=== PATIENT | male | born 1950 | race Caucasian/White ===

== ENCOUNTER 2018-03-18 08:50 | Day surgery (SDC) | payer OTHER ==
[~2018-03-18] VITALS: Ht 215.9 cm; Wt 132.4 kg
[~2018-03-18 08:50] MED LIST: ASPI325EC PO
[2018-03-18] MEDS ORDERED: LISI5 PO (09:29)
[2018-03-18] MEDS ORDERED: Depo-Testo100 MG/1 M (09:30)
--- NOTE | 2018-03-18 10:05 | NUR ---
03/18/18 1005 Shania Paiz INJECTED INTO THE BX PORT PER DR. ARREDONDO ORDER.
== END 2018-03-18 10:40 | disposition home or self-care (01) ==
LOC: ORSCSDS 08:50
PROVIDERS: Internal Medicine Gastroenterology
PROC: 0DJD8ZZ Inspection of Lower Intestinal Tract, Via Natural or Artificial Opening Endoscopic (ICD-10-PCS; principal; 2018-03-18 10:00)
DX: Z12.11 Encounter for screening for malignant neoplasm of colon (principal); Z85.038 Personal history of other malignant neoplasm of large intestine; K57.30 Diverticulosis of large intestine without perforation or abscess without bleeding; G47.30 Sleep apnea, unspecified; E66.01 Morbid (severe) obesity due to excess calories; Z68.41 Body mass index [BMI] 40.0-44.9, adult; I10 Essential (primary) hypertension; Z79.82 Long term (current) use of aspirin; Z79.899 Other long term (current) drug therapy
CPT/HCPCS: J2250; J7120

== ENCOUNTER 2020-05-24 08:00 | Day surgery (SDC) | payer OTHER ==
[~2020-05-24] VITALS: Ht 185.4 cm; Wt 144.3 kg
[~2020-05-24 08:00] MED LIST changes: +Depo-Testo100 MG/1 M; +LISI5 PO
[2020-05-24] MEDS ORDERED: NAPR220 (08:52)
[2020-05-24] MEDS ORDERED: Aspir 8181 MG (09:14)
[2020-05-24] MEDS ORDERED: Flomax0.4 MG (09:15)
[2020-07-05] MEDS ORDERED: Lisinopril-Hct1 EAC4 PO (07:51)
== END 2020-05-24 10:57 | disposition home or self-care (01) ==
LOC: ORSCSDS 08:00
PROVIDERS: Orthopaedic Surgery
PROC: 01N50ZZ Release Median Nerve, Open Approach (ICD-10-PCS; principal; 2020-05-24 10:45)
DX: G56.02 Carpal tunnel syndrome, left upper limb (principal); I10 Essential (primary) hypertension; G47.33 Obstructive sleep apnea (adult) (pediatric); E66.01 Morbid (severe) obesity due to excess calories; Z68.41 Body mass index [BMI] 40.0-44.9, adult; Z79.899 Other long term (current) drug therapy
CPT/HCPCS: J0690; J1885; J2250; J3010; J7120

== ENCOUNTER 2020-07-12 08:55 | Day surgery (SDC) | payer OTHER ==
[~2020-07-12] VITALS: Ht 185.4 cm; Wt 144.3 kg
[~2020-07-12 08:55] MED LIST changes: +Aspir 8181 MG; +Flomax0.4 MG; +Lisinopril-Hct1 EAC4 PO; +NAPR220
== END 2020-07-12 12:00 | disposition home or self-care (01) ==
LOC: ORSCSDS 08:55
PROVIDERS: Orthopaedic Surgery
PROC: 01N50ZZ Release Median Nerve, Open Approach (ICD-10-PCS; principal; 2020-07-12 10:15)
DX: G56.01 Carpal tunnel syndrome, right upper limb (principal); I10 Essential (primary) hypertension; G47.33 Obstructive sleep apnea (adult) (pediatric); Z79.82 Long term (current) use of aspirin; Z79.899 Other long term (current) drug therapy
CPT/HCPCS: J0690; J1885; J2250; J2704; J3010; J7120

== ENCOUNTER 2021-12-28 08:40 | Day surgery (SDC) | payer OTHER ==
[~2021-12-28] VITALS: Ht 182.9 cm; Wt 133.5 kg
[~2021-12-28 08:40] MED LIST changes: +Adipex-P37.5 MG PO; -Aspir 8181 MG; +Aspir 8181 MG PO; +C COMPLEX1000 M1 PO; +DEPO-TESTO200 MG/1 M IM; +DOXYLAMINE SUCCINATE PO; -Depo-Testo100 MG/1 M; +GABA300 PO; +MAGNESIUM OXID500 MG PO; +Phendimetrazine35 MG PO; +TAMS.4ER PO; +VITAMIN B125000 MC1 PO; +VITAMIN D310 MC4 PO; +ZINC15 PO
--- NOTE | 2021-12-28 10:04 | NUR ---
Ambulatory in Day Surgery with cane. Pre-Op teaching done. Pt verbalizes understanding. Patient confirms NPO status and agrees with scheduled surgery. Patient reports completing Chlorhexadine shower X2 prior to admission to hospital. Lungs clear T/O to Auscultation.
--- NOTE | 2021-12-28 17:25 | NUR ---
Pt. is working with PT soon after Hip replacement surgery. Spouse and Pts. sister are present and welcome my visit. Rapport is established. Pt. is pleasant and verbalizes expectations to be discharged tomorrow. Normalize the Pt. experience and pray with the Pt. and family. Family verbalized gratitude for the spiritual care visit.
--- NOTE | 2021-12-28 19:03 | NUR ---
SHIFT SUMMARY PT HAS DONE WELL POST OP. WORKED w/ THERAPY. EATING & DRINKING WELL. UP TO CHAIR FOR DINNER. PAIN WELL CONTROLLED.
[2021-12-29 04:43] LABS: BASOPHILS ABSOLUTE AUTO 0.03 K/mm3 (0.00-0.23); BASOPHILS PERCENT AUTO 0 % (0-2); EOSINOPHILS PERCENT AUTO 0 % (0-6); Hematocrit 51.4 % (37.0-53.0); Hemoglobin 17.5 g/dL (13.5-17.5); IMMATURE GRAN ABSOLUTE AUTO 0.09 K/mm3 (0.00-0.10); IMMATURE GRAN PERCENT AUTO 1 % (0-1); LYMPHOCYTES ABSOLUTE AUTO 1.05 K/mm3 (0.84-5.20); LYMPHOCYTES PERCENT AUTO 8 % (21-46); MONOCYTES PERCENT AUTO 9 % (4-13); Mean Corpuscular Volume 103 fL (80-100); Mean Platelet Volume 10.9 fL (9.1-12.4); NEUTROPHILS ABSOLUTE AUTO 11.57 K/mm3 (1.96-9.15); NEUTROPHILS PERCENT AUTO 82 % (41-73); Platelet Count 177 K/mm3 (150-400); RDW Coefficient Variation 13.8 % (11.7-14.2); RDW Standard Deviation 52.3 fL (35.1-46.3); White Blood Cell Count 14.04 K/mm3 (4.00-11.30)
--- NOTE | 2021-12-29 04:55 | NUR ---
COMPUTED TOMOGRAPHY TECHNOLOGIST SUMMARY POD 0 FOR R HIP REPAIR. DRESSINGS ON R HIP C/D/I. PAIN HAS BEEN MANAGED WITH SCHEDULED TORADOL/TYLENOL. PT HAS SLEPT IN HIS RECLINER THROUGH THE NIGHT AND HAS DECLINED TO GET UP TO AMBULATE TONIGHT, BUT DID GET UP TO THE CHAIR FROM THE BED WITH PHYSICAL THERAPY EARLIER IN THE DAY PER DAY SHIFT RN REPORT. CONTINUES ABX PER EMAR. VSS, WILL CONTINUE TO MONITOR.
[2021-12-29 05:04] LABS: Calcium, Blood 8.4 mg/dL (8.5-10.1); Creatinine, Blood 1.07 mg/dL (0.60-1.20); Magnesium, Blood 1.8 mg/dL (1.6-2.4); Potassium, Blood 4.8 mmol/L (3.5-5.5)
--- NOTE | 2021-12-29 10:35 | NUR ---
Pt. was getting final PT before discharge. Assisted FACILITY MANAGER with bringing Pt. and personal items to the car, where spouse was picking him up. Pt. went out of his way to verbalize the amazing nursing care he has received. Pt. verbalized care for the spiritual care visit.
--- NOTE | 2021-12-29 10:58 | NUR ---
PT DISCHARGED HOME FROM UNIT AT APROX 1030. PT AND GIVEN WRITTEN AND VERBAL DC INSTRUCTIONS AND VERBALIZED UNDERSTANDING OF THESE INSTRUCTIONS. IV REMOVED BY [place] DOUGLAS. EXTRA AQUACEL DRESSINGS X'S 2 GIVEN TO PT ALONG WITH [employer] SPECIFIC WOUND CARE INSTRUCTION SHEET. PT STATES HE ALREADY PICKED UP PAIN MEDICATION AND ABX PRE-OP. WC TO CAR.
== END 2021-12-29 10:05 | disposition home or self-care (01) ==
LOC: ORSCMMR 08:40 → ORD 10:45 → ORSCMMR 10:45 → SURS 14:36 → ORSCMMR 12-29 10:05
PROVIDERS: Orthopaedic Surgery
PROC: 0SR90JA Replacement of Right Hip Joint with Synthetic Substitute, Uncemented, Open Approach (ICD-10-PCS; principal; 2021-12-28 10:45)
DX: M16.11 Unilateral primary osteoarthritis, right hip (principal); I10 Essential (primary) hypertension; G47.33 Obstructive sleep apnea (adult) (pediatric); E66.01 Morbid (severe) obesity due to excess calories; Z68.41 Body mass index [BMI] 40.0-44.9, adult; Z79.899 Other long term (current) drug therapy; Z79.82 Long term (current) use of aspirin; G62.9 Polyneuropathy, unspecified
CPT/HCPCS: 36415; 72170; 80048; 83735; 85025; 94660; 94762; 97110; 97116; 97162; 97165; 97530; 97535; A9270; C1713; C1776; J0171; J0690; J0735; J1100; J1885; J2250; J2405; J2704; J2795; J3010; J3370; J7120

== ENCOUNTER 2022-12-19 07:12 | Day surgery (SDC) | payer OTHER ==
[2022-12-19] VITALS (16 sets, daily range): BP systolic 101–147; BP diastolic 65–94
[~2022-12-19] VITALS: Ht 182.9 cm; Wt 125.7 kg
[~2022-12-19 07:12] MED LIST changes: +ALEVE220 MG PO; +Adipex-P37.5 M1 PO; +DUTA.5 PO; +MECL25 PO; +MULTIPLE VITAM1 EACH PO; +POTASSIUM CHLO20 ME2 PO; +SUPER B COMPLEX PO; +TORSE20 PO; +TRAM50 PO
--- NOTE | 2022-12-19 09:18 | NUR ---
History, Chart, Medications and Allergies reviewed before start of procedure. Patient confirms NPO status and agrees with scheduled surgery. Patient reports completing Chlorhexadine shower X2 prior to admission to hospital. Surgical site prepped with 2% Chlorhexidine cloth wipe. Pre-Op teaching done. Pt verbalizes understanding.
--- NOTE | 2022-12-19 17:39 | NUR ---
SHIFT SUMMARY PT HAS DONE WELL POST OP. PAIN WELL CONTROLLED. WORKED w/ THERAPY. EATING & DRINKING. NO VOID YET BUT WAS I/O CATH'd IN PACU. PT AGREES TO ATTEMPT TO VOID SOON.
[2022-12-20 00:54] VITALS: BP 115/74
[2022-12-20 04:36] LABS: BASOPHILS ABSOLUTE AUTO 0.02 K/mm3 (0.00-0.23); BASOPHILS PERCENT AUTO 0 % (0-2); EOSINOPHILS ABSOLUTE AUTO 0.02 K/mm3 (0.00-0.68); EOSINOPHILS PERCENT AUTO 0 % (0-6); Hematocrit 46.5 % (37.0-53.0); Hemoglobin 15.8 g/dL (13.5-17.5); IMMATURE GRAN ABSOLUTE AUTO 0.07 K/mm3 (0.00-0.10); IMMATURE GRAN PERCENT AUTO 1 % (0-1); LYMPHOCYTES ABSOLUTE AUTO 1.26 K/mm3 (0.84-5.20); LYMPHOCYTES PERCENT AUTO 8 % (21-46); MONOCYTES ABSOLUTE AUTO 1.03 K/mm3 (0.16-1.47); MONOCYTES PERCENT AUTO 7 % (4-13); Mean Corpuscular HGB 33.9 pg (26.0-34.0); Mean Corpuscular Volume 100 fL (80-100); Mean Platelet Volume 10.4 fL (9.1-12.4); NEUTROPHILS ABSOLUTE AUTO 12.66 K/mm3 (1.96-9.15); NEUTROPHILS PERCENT AUTO 84 % (41-73); Platelet Count 214 K/mm3 (150-400); RDW Coefficient Variation 13.6 % (11.7-14.2); RDW Standard Deviation 50.2 fL (35.1-46.3); Red Blood Cell Count 4.66 M/mm3 (4.30-5.90); White Blood Cell Count 15.06 K/mm3 (4.00-11.30)
--- NOTE | 2022-12-20 04:36 | NUR ---
SHIFT SUMMARY NO ACUTE CHANGES TO REPORT OVERNIGHT, POD 0 RIGHT TOTAL KNEE. PT HAS RESTED MOST OF THE NIGHT. HE HAS BEEN UP AND AMBULATING AND IS VOIDING. DRESSING C/D/I TO RIGHT KNEE. POST OP VITALS ARE STABLE. PT DENIES N/T IN EXT. PLAN IS FOR DC TODAY.
[2022-12-20 05:10] LABS: Bun/Creatinine Ratio 24.6 (12.0-20.0); Calcium, Blood 8.3 mg/dL (8.5-10.1); Creatinine, Blood 1.18 mg/dL (0.60-1.20); Potassium, Blood 4.4 mmol/L (3.5-5.5)
[2022-12-20 05:24] VITALS: BP 129/71
[2022-12-20 07:20] VITALS: BP 121/66
[2022-12-20] MEDS ORDERED: Percocet 5-3251 EACH PO (10:27)
[2022-12-20] MEDS ORDERED: ELIQUIS2.5 MG PO (10:30)
--- NOTE | 2022-12-20 11:24 | NUR ---
"Spiritual Care Visit | Pre Discharge Pt. is awake in his recliner and dressed for discharge when he welcomed my visit. Facilitated discussion about his hospital visit. Pt. verbalized fantastic about the care he recieved here at [facility]. Listen with encouragement and empathy. Pts. spouse arrives, and life review took place until the Pts. nurse came to discharge him. Pt. and spouse verbalized gratitude for the spiritual care visit."
--- NOTE | 2022-12-20 11:33 | NUR ---
DISCHARGE PT HAS CLEARED THERAPY. PAIN WELL CONTROLLED. EATING, DRINKING, & VOIDING WELL. DRSGUY & POLAR PACK SENT w/ PT. HAS ALREADY OBTAINED & FILLED RX. ESCORTED OUT VIA W/C.
--- NOTE | 2022-12-21 11:01 | NUR ---
12/21/22 1101 Karma Hobson VERIFICATIONS: EDIT CHART.
== END 2022-12-20 11:33 | disposition home or self-care (01) ==
LOC: ORSCMMR 07:12 → ORD 08:15 → ORSCMMR 08:15 → ORD 09:15 → ORSCMMR 09:15 → ORD 10:00 → SURS 13:19 → ORSCMMR 12-20 11:33
PROVIDERS: Orthopaedic Surgery
PROC: 0SRC0JA Replacement of Right Knee Joint with Synthetic Substitute, Uncemented, Open Approach (ICD-10-PCS; principal; 2022-12-19 09:15)
DX: M17.11 Unilateral primary osteoarthritis, right knee (principal); Z96.652 Presence of left artificial knee joint; Z96.643 Presence of artificial hip joint, bilateral; Z96.612 Presence of left artificial shoulder joint; Z96.611 Presence of right artificial shoulder joint; I10 Essential (primary) hypertension; G47.33 Obstructive sleep apnea (adult) (pediatric); Z85.038 Personal history of other malignant neoplasm of large intestine; E66.9 Obesity, unspecified; Z68.37 Body mass index [BMI] 37.0-37.9, adult; Z79.899 Other long term (current) drug therapy; Z79.82 Long term (current) use of aspirin
CPT/HCPCS: 36415; 73560-RT; 80048; 85025; 97110; 97116; 97162; A9270; C1713; C1776; J0171; J0690; J0735; J1100; J1885; J2371; J2405; J2704; J2795; J3010; J7120

== ENCOUNTER 2023-04-11 16:01 | Emergency (ER) | payer OTHER ==
[~2023-04-11] VITALS: Ht 182.9 cm; Wt 122.5 kg
[~2023-04-11 16:01] MED LIST changes: +ELIQUIS2.5 MG PO; +Percocet 5-3251 EACH PO
[2023-04-11] MEDS ORDERED: TADALAFIL20 M1 PO (17:54)
[2023-04-11] MEDS ORDERED: POTCHL20ER PO (17:55)
--- NOTE | 2023-04-11 18:06 | NUR ---
Spiritual Care Support Pt. is awake waiting in the ED to get a room. Facilitate a conversation regarding the Pts. recent health history. Pt. displays evidence of emotion during the wait. Considered matters of [place] and belief. Pt. displayed evidence of being comforted and maintained a good sense of humor. Assisted with communication with spouse who was in the waiting area. When Pt. was brought in room, this lawn care technician retrieved the spouse who joined Pt. at bedside. Both Pt. and spouse verbalized gratitude for the spiritual care visit.
[2023-04-11 18:17] LABS: BASOPHILS ABSOLUTE AUTO 0.07 K/mm3 (0.00-0.23); BASOPHILS PERCENT AUTO 1 % (0-2); EOSINOPHILS ABSOLUTE AUTO 0.08 K/mm3 (0.00-0.68); EOSINOPHILS PERCENT AUTO 1 % (0-6); Hematocrit 50.2 % (37.0-53.0); Hemoglobin 16.8 g/dL (13.5-17.5); IMMATURE GRAN ABSOLUTE AUTO 0.08 K/mm3 (0.00-0.10); IMMATURE GRAN PERCENT AUTO 1 % (0-1); LYMPHOCYTES ABSOLUTE AUTO 1.64 K/mm3 (0.84-5.20); LYMPHOCYTES PERCENT AUTO 14 % (21-46); MONOCYTES ABSOLUTE AUTO 1.06 K/mm3 (0.16-1.47); MONOCYTES PERCENT AUTO 9 % (4-13); Mean Corpuscular HGB 33.3 pg (26.0-34.0); Mean Corpuscular HGB Conc 33.5 g/dL (31.5-36.5); Mean Corpuscular Volume 99 fL (80-100); Mean Platelet Volume 11.4 fL (9.1-12.4); NEUTROPHILS ABSOLUTE AUTO 8.84 K/mm3 (1.96-9.15); NEUTROPHILS PERCENT AUTO 75 % (41-73); Platelet Count 190 K/mm3 (150-400); RDW Coefficient Variation 14.2 % (11.7-14.2); RDW Standard Deviation 51.3 fL (35.1-46.3); Red Blood Cell Count 5.05 M/mm3 (4.30-5.90); White Blood Cell Count 11.77 K/mm3 (4.00-11.30)
[2023-04-11 18:29] LABS: Albumin, Blood 3.5 g/dL (3.4-5.0); Albumin/Globulin Ratio 1.1 (0.8-1.8); Bilirubin, Total 0.5 mg/dL (0.1-1.0); Bun/Creatinine Ratio 16.1 (12.0-20.0); Creatinine, Blood 1.37 mg/dL (0.60-1.20); Globulin, Blood 3.3 g/dL (2.2-4.0); Potassium, Blood 4.4 mmol/L (3.5-5.5); Total Protein, Blood 6.8 g/dL (6.4-8.2)
[2023-04-11 20:00] VITALS: BP 123/80
== END 2023-04-11 20:44 | disposition home or self-care (01) ==
LOC: ER 16:01
PROVIDERS: Physician Assistant
DX: I95.2 Hypotension due to drugs (principal); T50.905A Adverse effect of unspecified drugs, medicaments and biological substances, initial encounter; I10 Essential (primary) hypertension; Z85.038 Personal history of other malignant neoplasm of large intestine; Z79.899 Other long term (current) drug therapy; Z79.01 Long term (current) use of anticoagulants
CPT/HCPCS: 80053; 85025; 93005; 93010; 99284-25

== ENCOUNTER 2024-08-16 10:49 | Emergency (ER) | payer OTHER ==
[~2024-08-16] VITALS: Ht 182.9 cm; Wt 142.0 kg
[~2024-08-16 10:49] MED LIST changes: +POTCHL20ER PO; +TADALAFIL20 M1 PO
[2024-08-16] MEDS ORDERED: METO50ER PO (11:03)
[2024-08-16] MEDS ORDERED: BUMETANIDE2 M6 PO (11:04)
[2024-08-16] MEDS ORDERED: OZEMPIC0.25 MG/02 SC (11:05)
[2024-08-16] MEDS ORDERED: MAGNESIUM GLU27.5 M1 PO (11:06)
[2024-08-16] MEDS ORDERED: POTASSIUM99 M3 PO (11:06)
[2024-08-16] MEDS ORDERED: ASPIR 8181 M1 PO (11:07)
[2024-08-16 11:15] LABS: BASOPHILS ABSOLUTE AUTO 0.04 K/mm3 (0.00-0.23); BASOPHILS PERCENT AUTO 0 % (0-2); EOSINOPHILS ABSOLUTE AUTO 0.12 K/mm3 (0.00-0.68); EOSINOPHILS PERCENT AUTO 1 % (0-6); Hematocrit 41.1 % (37.0-53.0); Hemoglobin 14.4 g/dL (13.5-17.5); IMMATURE GRAN ABSOLUTE AUTO 0.06 K/mm3 (0.00-0.10); IMMATURE GRAN PERCENT AUTO 1 % (0-1); LYMPHOCYTES ABSOLUTE AUTO 1.15 K/mm3 (0.84-5.20); LYMPHOCYTES PERCENT AUTO 11 % (21-46); MONOCYTES PERCENT AUTO 10 % (4-13); Mean Corpuscular HGB 35.6 pg (26.0-34.0); Mean Corpuscular Volume 102 fL (80-100); Mean Platelet Volume 10.2 fL (9.1-12.4); NEUTROPHILS ABSOLUTE AUTO 8.21 K/mm3 (1.96-9.15); NEUTROPHILS PERCENT AUTO 77 % (41-73); Platelet Count 193 K/mm3 (150-400); RDW Coefficient Variation 15.3 % (11.7-14.2); RDW Standard Deviation 57.1 fL (35.1-46.3); Red Blood Cell Count 4.05 M/mm3 (4.30-5.90); White Blood Cell Count 10.68 K/mm3 (4.00-11.30)
[2024-08-16] MEDS ORDERED: NS 1,000 ML IV SCH (11:20)
[2024-08-16 11:39] LABS: Albumin, Blood 3.1 g/dL (3.4-5.0); Albumin/Globulin Ratio 0.8 (0.8-1.8); Bilirubin, Total 1.8 mg/dL (0.1-1.0); Bun/Creatinine Ratio 15.8 (12.0-20.0); Calcium, Blood 8.7 mg/dL (8.5-10.1); Creatinine, Blood 0.95 mg/dL (0.60-1.20); Potassium, Blood 3.3 mmol/L (3.5-5.5); Total Protein, Blood 7.1 g/dL (6.4-8.2)
[2024-08-16] MEDS ORDERED: Morphine Sulfate 4 MG/1 ML Injection IV ONE (11:45)
[2024-08-16 12:28] LABS: Source, Urine Clean Catch
[2024-08-16 12:32] LABS: Appearance, Urine Cloudy (Clear); Bilirubin, Urine Neg (Neg); Blood, Urine 3+ (Neg); Color, Urine Yellow (P-Yellow); Glucose Qualitative, Urine Neg (Neg); Ketones, Urine 2+ (Neg); Leukocyte Esterase, Urine 3+ (Neg); Nitrite, Urine Neg (Neg); Protein, Urine 2+ (Neg); Urobilinogen, Urine 1+ (Normal)
[2024-08-16 12:39] LABS: Bacteria Many /hpf; Red Blood Cells, Urine 0-2 /hpf (0-2); Squamous Epithelial Cells Few /hpf (Few); Transitional Epithelial Cells Rare /hpf (0-Rare); White Blood Cells, Urine 50-100 /hpf (0-5)
[2024-08-16] MEDS ORDERED: CEPH500 PO (12:52)
[2024-08-16] MEDS ORDERED: HYDR1TAB94 PO (12:52)
[2024-08-16 13:10] VITALS: BP 151/78
== END 2024-08-16 13:10 | disposition home or self-care (01) ==
LOC: ER 10:49
PROVIDERS: Student in an Organized Health Care Education/Training Program
DX: N39.0 Urinary tract infection, site not specified (principal); I10 Essential (primary) hypertension; Z79.82 Long term (current) use of aspirin; Z79.899 Other long term (current) drug therapy
CPT/HCPCS: 71045; 80053; 81001; 85025; 87077; 87086; 87186; 93005; 93010; 96361; 96374; 99285-25; J2270; J7030

== ENCOUNTER 2024-08-23 11:25 | Emergency (ER) | payer OTHER ==
[~2024-08-23] VITALS: Ht 182.9 cm; Wt 131.1 kg
[~2024-08-23 11:25] MED LIST changes: +ASPIR 8181 M1 PO; +BUMETANIDE2 M6 PO; +CEPH500 PO; +HYDR1TAB94 PO; +MAGNESIUM GLU27.5 M1 PO; +METO50ER PO; +OZEMPIC0.25 MG/02 SC; +POTASSIUM99 M3 PO
[2024-08-23] MEDS ORDERED: HYDROmorphone HCl/Pf 1MG SYR IV ONE ×2 (11:35→15:00)
[2024-08-23 11:54] LABS: BASOPHILS ABSOLUTE AUTO 0.08 K/mm3 (0.00-0.23); BASOPHILS PERCENT AUTO 1 % (0-2); EOSINOPHILS ABSOLUTE AUTO 0.14 K/mm3 (0.00-0.68); EOSINOPHILS PERCENT AUTO 1 % (0-6); Hematocrit 42.2 % (37.0-53.0); Hemoglobin 14.5 g/dL (13.5-17.5); IMMATURE GRAN ABSOLUTE AUTO 0.12 K/mm3 (0.00-0.10); IMMATURE GRAN PERCENT AUTO 1 % (0-1); LYMPHOCYTES ABSOLUTE AUTO 1.40 K/mm3 (0.84-5.20); LYMPHOCYTES PERCENT AUTO 13 % (21-46); MONOCYTES ABSOLUTE AUTO 0.85 K/mm3 (0.16-1.47); MONOCYTES PERCENT AUTO 8 % (4-13); Mean Corpuscular HGB Conc 34.4 g/dL (31.5-36.5); Mean Corpuscular Volume 101 fL (80-100); NEUTROPHILS ABSOLUTE AUTO 7.84 K/mm3 (1.96-9.15); NEUTROPHILS PERCENT AUTO 75 % (41-73); NRBC ABSOLUTE 0.00 K/mm3 (0.00-0.02); NRBC Auto 0.0 /100 WBC (0.0-0.2); Platelet Count 283 K/mm3 (150-400); RDW Coefficient Variation 14.0 % (11.7-14.2); RDW Standard Deviation 52.2 fL (35.1-46.3)
[2024-08-23 12:24] LABS: Alanine Aminotransfer (ALT/SGP 40.0 U/L (12-78); Albumin, Blood 2.7 g/dL (3.4-5.0); Albumin/Globulin Ratio 0.6 (0.8-1.8); Anion Gap 9.0 mmol/L (3-11); Aspartate Aminotrans (AST/SGOT 51.0 U/L (12-37); Bilirubin, Total 2.0 mg/dL (0.1-1.0); Blood Urea Nitrogen 21.0 mg/dL (8-24); CO2, Blood 37.0 mmol/L (21-32); Calcium, Blood 9.2 mg/dL (8.5-10.1); Chloride, Blood 91.0 mmol/L (98-108); Creatinine, Blood 0.87 mg/dL (0.60-1.20); Globulin, Blood 4.8 g/dL (2.2-4.0); Glucose, Blood 110.0 mg/dL (70-99); Magnesium, Blood 1.9 mg/dL (1.6-2.4); Potassium, Blood 3.3 mmol/L (3.5-5.5); Sodium, Blood 134.0 mmol/L (136-145); Total Protein, Blood 7.5 g/dL (6.4-8.2)
[2024-08-23 13:34] LABS: Source, Urine Clean Catch
[2024-08-23 13:56] LABS: Color, Urine Yellow (P-Yellow); Glucose Qualitative, Urine Neg (Neg); Ketones, Urine Neg (Neg); Leukocyte Esterase, Urine 3+ (Neg); Protein, Urine 2+ (Neg); Specific Gravity, Urine 1.015 (1.003-1.022); Urobilinogen, Urine 3+ (Normal)
[2024-08-23 13:57] LABS: Bilirubin, Urine 1+ (Neg)
[2024-08-23 13:58] LABS: White Blood Cells, Urine 50-100 /hpf (0-5)
[2024-08-23] MEDS ORDERED: PERCOCET 10-321 EA13 PO (14:59)
[2024-08-23] MEDS ORDERED: ONDA4 PO (14:59)
[2024-08-23] MEDS ORDERED: MIRALAX17 GM PO (14:59)
[2024-08-23 16:00] VITALS: BP 151/82
== END 2024-08-23 16:22 | disposition home or self-care (01) ==
LOC: ER 11:25
PROVIDERS: Emergency Medicine
DX: S12.000A Unspecified displaced fracture of first cervical vertebra, initial encounter for closed fracture (principal); K59.00 Constipation, unspecified; I10 Essential (primary) hypertension; V86.55XA Driver of 3- or 4- wheeled all-terrain vehicle (ATV) injured in nontraffic accident, initial encounter; Z79.899 Other long term (current) drug therapy; Z79.82 Long term (current) use of aspirin
CPT/HCPCS: 74177; 76705; 80053; 81001; 83690; 83735; 85025; 96374-59; 96376; 99284-25; J1171; Q9967

== ENCOUNTER 2024-10-15 11:17 | Emergency (ER) | payer OTHER ==
[~2024-10-15] VITALS: Ht 182.9 cm; Wt 127.0 kg
[~2024-10-15 11:17] MED LIST changes: +MIRALAX17 GM PO; +ONDA4 PO; +PERCOCET 10-321 EA13 PO
[2024-10-15 12:11] LABS: BASOPHILS ABSOLUTE AUTO 0.05 K/mm3 (0.00-0.23); BASOPHILS PERCENT AUTO 1 % (0-2); EOSINOPHILS ABSOLUTE AUTO 0.09 K/mm3 (0.00-0.68); EOSINOPHILS PERCENT AUTO 1 % (0-6); Hematocrit 39.5 % (37.0-53.0); Hemoglobin 13.2 g/dL (13.5-17.5); IMMATURE GRAN ABSOLUTE AUTO 0.05 K/mm3 (0.00-0.10); IMMATURE GRAN PERCENT AUTO 1 % (0-1); LYMPHOCYTES ABSOLUTE AUTO 1.11 K/mm3 (0.84-5.20); LYMPHOCYTES PERCENT AUTO 16 % (21-46); MONOCYTES ABSOLUTE AUTO 0.69 K/mm3 (0.16-1.47); MONOCYTES PERCENT AUTO 10 % (4-13); Mean Corpuscular HGB Conc 33.4 g/dL (31.5-36.5); Mean Corpuscular Volume 100 fL (80-100); NEUTROPHILS ABSOLUTE AUTO 4.79 K/mm3 (1.96-9.15); NEUTROPHILS PERCENT AUTO 71 % (41-73); NRBC ABSOLUTE 0.00 K/mm3 (0.00-0.02); NRBC Auto 0.0 /100 WBC (0.0-0.2); Platelet Count 241 K/mm3 (150-400); RDW Coefficient Variation 13.9 % (11.7-14.2); RDW Standard Deviation 51.1 fL (35.1-46.3)
[2024-10-15 12:49] LABS: Alanine Aminotransfer (ALT/SGP 17.0 U/L (12-78); Albumin, Blood 3.2 g/dL (3.4-5.0); Albumin/Globulin Ratio 0.7 (0.8-1.8); Anion Gap 7.0 mmol/L (3-11); Aspartate Aminotrans (AST/SGOT 19.0 U/L (12-37); Bilirubin, Total 0.9 mg/dL (0.1-1.0); Blood Urea Nitrogen 22.0 mg/dL (8-24); CO2, Blood 38.0 mmol/L (21-32); Calcium, Blood 9.3 mg/dL (8.5-10.1); Chloride, Blood 94.0 mmol/L (98-108); Creatinine, Blood 1.09 mg/dL (0.60-1.20); Globulin, Blood 4.4 g/dL (2.2-4.0); Glucose, Blood 115.0 mg/dL (70-99); Potassium, Blood 2.9 mmol/L (3.5-5.5); Sodium, Blood 136.0 mmol/L (136-145); Total Protein, Blood 7.6 g/dL (6.4-8.2)
[2024-10-15] MEDS ORDERED: Potassium Chl 20MEQ/Water100ML 100 ML IV ONE (13:05)
[2024-10-15] MEDS ORDERED: Ketorolac Tromethamine 30mg Vial IV ONE (13:45)
[2024-10-15] MEDS ORDERED: NS 1,000 ML IV SCH (14:00)
[2024-10-15] MEDS ORDERED: POTCHL20ER PO (16:12)
[2024-10-15 16:36] VITALS: BP 121/78
== END 2024-10-15 16:37 | disposition home or self-care (01) ==
LOC: ER 11:17
PROVIDERS: Emergency Medicine
DX: E87.6 Hypokalemia (principal); I10 Essential (primary) hypertension; Z79.85 Long-term (current) use of injectable non-insulin antidiabetic drugs; Z79.82 Long term (current) use of aspirin; Z79.899 Other long term (current) drug therapy
CPT/HCPCS: 80053; 85025; 93005; 93010; 96365; 96366; 96375; 99285-25; A9270; J1885; J3480; J7030